=== PATIENT | male | born 1980 | race African-American/Black ===

== ENCOUNTER 2020-12-04 11:20 | Observation (INO) | payer SELFPAY ==
[~2020-12-04] VITALS: Ht 188 cm; Wt 76.3 kg
[2020-12-04] VITALS (384 sets, daily range): BP systolic 148–200; BP diastolic 95–155; PULSE 73–102; TEMP 97.7–97.8; O2SAT 65–100
[2020-12-04] MEDS ORDERED: ZESTRIL 5MG5 MG PO (12:05)
[2020-12-04] MEDS ORDERED: HCTZ 25MG TAB25 MG PO (12:05)
[2020-12-04] MEDS ORDERED: ASPIRIN 32325 MG/TAB PO (12:06)
[2020-12-04] MEDS ORDERED: PROZAC 20MG20 MG PO (12:26)
[2020-12-04] MEDS ORDERED: PRINIVIL10 MG PO (12:26)
[2020-12-04] MEDS ORDERED: CATAPRES-TTS 10.1 M1 TD (12:26)
[2020-12-04] MEDS ORDERED: COREG 6.256.25 MG/TA PO (12:26)
[2020-12-04] MEDS ORDERED: ZYPREXA 5MG5 MG PO (12:27)
[2020-12-04 12:33] LABS: BASO % 0.7 % (0.0-2.0); EOS # 0.1 (0.0-0.7); EOS % 1.8 % (0-4.0); GRAN # 2.3 (1.4-6.5); GRAN % 52.4 % (42.2-75.2); HEMATOCRIT 42.5 % (42.0-52.0); HEMOGLOBIN 13.7 g/dl (13.5-18.0); LYMPH # 1.5 (1.2-3.4); LYMPH % 34.1 % (20.0-51.0); MEAN CELL VOLUME 79 fl (80.0-100.0); MEAN CORPUSCULAR HEMOGLOBIN 26 pg (27.0-31.0); MEAN CORPUSCULAR HGB CONC 32 g/dl (33.0-37.0); MEAN PLATELET VOLUME 9.1 fl (7.4-10.4); MONO # 0.5 (0.1-0.6); MONO % 10.8 % (1.7-9.3); PLATELET COUNT 255 K/mm3 (130-400); RED BLOOD COUNT 5.36 M/mm3 (4.20-5.60); REDCELL DISTRIBUTION WIDTH-CV 15.3 % (11.5-14.5)
[2020-12-04 12:39] LABS: CHOLESTEROL RISK RATIO 2.3; MAGNESIUM 2.1 mg/dL (1.6-2.3)
[2020-12-04 12:46] LABS: INR 0.9 (0.8-3.0); PROTHROMBIN TIME 10.2 SECONDS (9.7-12.8)
[2020-12-04 12:49] LABS: PARTIAL THROMBOPLASTIN TIME 35.8 SECONDS (26.0-37.0)
[2020-12-04 12:51] LABS: TROPONIN-I 0.014 ng/mL (0.000-0.035)
--- NOTE | 2020-12-04 13:35 | NUR ---
Admission assessment completed, alert/oriented, patient is severely HTN/ and I have notified the [facility] Goins with , other vital signs stable, patient reports mild dull chest pressure at this time that has been present for 4-5 days and is the reason for being sent to the hospital form the cardiology office, heart RRR/SR on tele, lungs CTA/ and patient denies feeling SOA, EKG ordered and has been done, initial Troponin negative/ serail levels ordered, patient does report smoking 1/2 ppd of cigarrettes, denies any alcohol or illicit drug use otherwise, after speaking initial workup Cardiology has decided to transfer patient to ICU to be placed on a Nitro gtt, 20g IV started to right forearm and placed on tele, we have discussed plan of care with the patient who verbalizes understanding and wishes to proceed, I have updated and reviewed patients home meds/ allergies/ pharmacy, I will give report to recieving ICU nurse once I am given a bed assignment for him
--- NOTE | 2020-12-04 14:15 | NUR ---
Arrived to the unit via wheelchair; alert and oriented and in no distress. Attached to all monitors. Call light left within reach.
[2020-12-04 17:31] LABS: CALCIUM 9.3 mg/dL (8.4-10.2); CREATININE, serum 0.71 (0.66-1.25); POTASSIUM 3.8 mmol/L (3.4-5.0)
--- NOTE | 2020-12-04 17:45 | NUR ---
BP continues to be 170's systolic with 120's diastolic despite multiple titrations of nitro. Reporting an 8/ headache which tylenol did not help. Notified Dr. Arriola. Wants to rule headache out as cause of continue elevated Bp's. Can give 25 mcg of fentanyl q1hr x 5 doses. If fentanyl does not help may need to call back to change to Nipride. Also instructed to start low dose heparin drip. Will continue to monitor.
--- NOTE | 2020-12-04 20:00 | NUR ---
Assessment complete. Pt is AXO X3, states he has a headache rated 10/10. Pt is sitting up in the bed watching TV at this time and he denies further needs. Call light within reach.
[2020-12-04 21:01] LABS: TRICYCLIC ANTIDEPRESS URINE NEGATIVE
[2020-12-05] VITALS (631 sets, daily range): BP systolic 122–158; BP diastolic 75–105; PULSE 71–109; TEMP 97.5–98.2; O2SAT 49–100
--- NOTE | 2020-12-05 07:25 | NUR ---
Bedside shift report given to EMMANUEL Reeves.
--- NOTE | 2020-12-05 13:39 | NUR ---
SEE MERGE DOCUMENTATION FOR MEDICATION ADMINISTRATION TIMES AND INTRA/POST PROCEDURE SEDATION ASSESSMENTS. PT ARRIVING TO CCL ON HEPARIN GTT AND NICARDIPINE GTT. VORB FROM DR PUENTE TO STOP BOTH GTT'S FOR PROCEDURE.
[2020-12-05] MEDS ORDERED: BYSTOLIC10 MG PO (15:11)
--- NOTE | 2020-12-05 18:05 | NUR ---
PT discharged at 1758 with significant other to home. PT agrees to follow up appointment and has education in hand. PT will call if any questions arise. PT denies pains or any complaints at this time. Right radial site has a clean dry and intact dressing. No bleeding or hematoma noted at this time. PT is able to ambulate to car with a steady gait.
== END 2020-12-05 17:58 | disposition home or self-care (01) ==
LOC: MEDICAL 11:20 → ICU 14:10
PROVIDERS: Nurse Practitioner; ADMIT Internal Medicine Interventional Cardiology
DX: R07.9 Chest pain, unspecified (principal); R94.39 Abnormal result of other cardiovascular function study; I10 Essential (primary) hypertension; Z20.822 Contact with and (suspected) exposure to COVID-19; Z79.899 Other long term (current) drug therapy; F41.9 Anxiety disorder, unspecified; F43.10 Post-traumatic stress disorder, unspecified
CPT/HCPCS: G0378; G0379; J1644; J2250; J3010; J7050; Q9967